=== PATIENT | male | born 1945 | race Hispanic/Latino ===

== ENCOUNTER → 2017-04-25 | Outpatient (CLI) | payer OTHER ==
[2017-05-03 12:35] LABS: INR 1.32; PROTHROMBIN TIME 17.1 seconds (11.9-14.5)
== END ==
LOC: NPA 13:00
PROVIDERS: ATTEND Internal Medicine
DX: R69 Illness, unspecified (principal)
CPT/HCPCS: 36415; 85610

== ENCOUNTER → 2017-05-02 | Outpatient (CLI) | payer OTHER ==
[2017-05-03 12:39] LABS: INR 1.12
[2017-05-03 12:42] LABS: INR 1.37; PROTHROMBIN TIME 17.6 seconds (11.9-14.5)
== END ==
LOC: NPA 10:00
PROVIDERS: ATTEND Internal Medicine
DX: R69 Illness, unspecified (principal)
CPT/HCPCS: 36415; 85610

== ENCOUNTER → 2017-05-04 | Outpatient (CLI) | payer OTHER ==
[2017-05-04 21:03] LABS: INR 1.48; PROTHROMBIN TIME 18.7 seconds (11.9-14.5)
[2017-05-04 21:04] LABS: BASOPHILS # (AUTO) 0.1 (0.0-0.1); BASOPHILS % 1.8 % (0.0-1.0); EOSINOPHILS # (AUTO) 0.8 (0.0-0.4); EOSINOPHILS % 12.2 % (0.0-6.0); HEMATOCRIT 35.2 % (38.2-49.6); HEMOGLOBIN 11.4 g/dL (14.0-18.0); LYMPHOCYTES # (AUTO) 1.3 (1.0-3.2); MEAN CORPUSCULAR HEMOGLOBIN 29.8 pg (28-32); MEAN CORPUSCULAR HGB CONC 32.4 g/dL (31-35); MEAN CORPUSCULAR VOLUME 91.9 fL (81-99); MONOCYTES # (AUTO) 0.5 (0.2-0.8); MONOCYTES % 8.2 % (4.4-11.3); NEUTROPHILS # (AUTO) 3.4 (2.1-6.9); PLATELET COUNT 83 x10e3/uL (140-360); RED BLOOD COUNT 3.83 x10e6/uL (4.3-5.7); RED CELL DISTRIBUTION WIDTH 13.9 % (11.7-14.4)
[2017-05-10 17:31] LABS: BASOPHILS # (AUTO) 0.1 (0.0-0.1); BASOPHILS % 1.1 % (0.0-1.0); EOSINOPHILS # (AUTO) 0.4 (0.0-0.4); EOSINOPHILS % 6.5 % (0.0-6.0); HEMATOCRIT 37.9 % (38.2-49.6); HEMOGLOBIN 12.5 g/dL (14.0-18.0); LYMPHOCYTES # (AUTO) 1.2 (1.0-3.2); LYMPHOCYTES % 21.9 % (18.0-39.1); MEAN CORPUSCULAR HEMOGLOBIN 29.8 pg (28-32); MEAN CORPUSCULAR VOLUME 90.2 fL (81-99); MONOCYTES # (AUTO) 0.5 (0.2-0.8); MONOCYTES % 9.2 % (4.4-11.3); NEUTROPHILS # (AUTO) 3.4 (2.1-6.9); NEUTROPHILS % 60.8 % (38.7-80.0); PLATELET COUNT 191 x10e3/uL (140-360); RED CELL DISTRIBUTION WIDTH 13.9 % (11.7-14.4)
[2017-05-10 18:12] LABS: INR 1.18; PROTHROMBIN TIME 15.6 seconds (11.9-14.5)
== END ==
LOC: NPA 05-03 09:00
PROVIDERS: ATTEND Internal Medicine
DX: R69 Illness, unspecified (principal)
CPT/HCPCS: 36415; 85025; 85610

== ENCOUNTER → 2017-05-10 | Outpatient (CLI) | payer OTHER | LOC: NPA 09:00 | PROVIDERS: ATTEND Internal Medicine | DX: Z02.89 Encounter for other administrative examinations (principal) | CPT/HCPCS: 36415 ==